=== PATIENT | male | born 1960 | race American Indian/Alaskan Native ===

== ENCOUNTER 2018-05-14 07:10 | Day surgery (SDC) | payer MEDICARE ==
[2018-05-14] MEDS ORDERED: ECOTRIN PO ONE (08:17)
[2018-05-14 08:43] LABS: Hematocrit 37.9 % (35.5-45.6); Hemoglobin 12.4 gm/dl (11.8-15.2); Mean Corpuscular HGB Conc 33 % (32-34); Mean Corpuscular Hemoglobin 27 pg (28-32); Mean Corpuscular Volume 83 fl (84-94); Platelet Count 250 K/mm3 (140-440); Red Blood Count 4.57 M/mm3 (3.65-5.03); Red Cell Distribution Width 16.1 % (13.2-15.2)
[2018-05-14 08:55] LABS: BUN/Creatinine Ratio 15; Blood Urea Nitrogen 12 mg/dL (9-20); Calcium 8.6 mg/dL (8.4-10.2); Hemolysis Index 13
[2018-05-14] MEDS ORDERED: NACL 0.9% 500 ML 500 ML IV SCH (09:00)
[2018-05-14 09:03] LABS: INR 0.97 (0.87-1.13)
[2018-05-14 09:22] LABS: Basophils % (Manual) 0 % (0.0-1.8); Total Cells Counted 100
[2018-05-14 09:23] LABS: Platelet Estimate Consistent w Auto; RBC Morphology Normal
[2018-05-14] MEDS ORDERED: VERSED ONE (09:42)
[2018-05-14] MEDS ORDERED: SUBLIMAZE ONE (09:42)
[2018-05-14] MEDS ORDERED: HEPARIN 10,000 UNITS/10 ML ONE (09:43)
[2018-05-14] MEDS ORDERED: XYLOCAINE 2% INFILTRATI ONE (09:44)
[2018-05-14] MEDS ORDERED: CALAN ONE (09:44)
[2018-05-14] MEDS ORDERED: NITROGLYCERIN SYRINGE 3 ML ONE (09:44)
[2018-05-14] MEDS ORDERED: HEPARIN/NS 5000 UNIT/500ML(CATH LAB) 1,000 ML IR ONE (10:06)
--- NOTE | 2018-05-14 11:08 | Short Stay Summary ---
Short Stay Documentation Date of service: 05/14/18 - History H&P: obtained from office - Allergies and Medications Current Medications: Allergies morphine Allergy (Verified 05/14/18 08:16) Itching Home Medications Medication Instructions Recorded Confirmed Last Taken Type Carisoprodol [Soma] 350 mg PO DAILY 05/14/18 05/14/18 05/13/18 History 350mg Doxepin HCl 50 mg PO DAILY 05/14/18 05/14/18 05/13/18 History 50mg Gabapentin [Neurontin] 400 mg PO QID 05/14/18 05/14/18 05/13/18 History 400mg buPROPion SR [Wellbutrin SR] 100 mg PO DAILY 05/14/18 05/14/18 05/13/18 History 100mg risperiDONE [Risperdal] 2 mg PO QHS 05/14/18 05/14/18 05/13/18 History 2mg tiZANidine [Zanaflex] 4 mg PO TID 05/14/18 05/14/18 05/13/18 History 4mg traMADol [Ultram 50 MG tab] 50 mg PO TID 05/14/18 05/14/18 05/13/18 History 50mg Active Medications Sodium Chloride (Nacl 0.9% 500 Ml) 500 mls @ 50 mls/hr IV DIRECT MAE Stop: 05/14/18 18:59 Last Admin: 05/14/18 08:45 Dose: 50 mls/hr - Physical exam General appearance: no acute distress Integumentary: no rash HEENT: Atraumatic Lungs: Clear to auscultation Breasts: deferred Heart: Regular rate Gastrointestinal: normal Male Genitourinary: deferred Female Genitourinary: deferred Rectal Exam: deferred Extremities: no ischemia Neurological: Normal gait - Brief post op/procedure progress note Date of procedure: 05/14/18 Pre-op diagnosis: Cardiomyopathy, abnormal stress test Post-op diagnosis: same Procedure: LHC and LV gram Anesthesia: MAC Findings: See report Surgeon: KARLA GONZALEZ Estimated blood loss: none Pathology: none Condition: stable - Hospital course Hospital course: Uneventful - Disposition Condition at discharge: Good Disposition: DC-01 TO HOME OR SELFCARE Short Stay Discharge Plan Activity: advance as tolerated Weight Bearing Status: Weight Bear as Tolerated Diet: low fat, low cholesterol, low salt Follow up with: VISHNU HERBERT MD [Primary Care Provider] - 7 Days
[2018-05-14 12:40] VITALS: BP 172/81
--- NOTE | 2018-05-14 13:22 | Cardiac Catherization Report ---
ORDERING PHYSICIAN: Yury Wylie MD INDICATION FOR PROCEDURE: Cardiomyopathy, abnormal myocardial perfusion scan. PROCEDURES PERFORMED: 1. Selective left and right coronary angiography. 2. Left ventriculography. DESCRIPTION OF PROCEDURE: After obtaining the consent, the patient was draped using sterile technique. Next, 2% lidocaine was injected into the right wrist. A 6-Tongan vascular sheath was inserted into the right radial artery. A 6-Tongan JL4 catheter was used to selectively engage left coronary artery. A 6-Tongan JR4 catheter was used to selectively engage the right coronary artery. A 6-Tongan JR4 catheter was used to perform a hand-injected LV gram. No complications occurred during the procedure. Hemostasis was achieved at the end of the procedure using manual pressure. ESTIMATED BLOOD LOSS: Minimal. SPECIMEN REMOVED: None. SEDATION ADMINISTERED: 1 mg of IV Versed and 50 mcg of IV fentanyl. PHYSICIAN/PATIENT SEDATION [id number] START TIME: 10:21 a.m. PHYSICIAN/PATIENT SEDATION [id number] STOP TIME: 10:34 a.m. TOTAL SEDATION TIME: 13 minutes. FINDINGS: HEMODYNAMICS: Aortic pressure 141/94, LV systolic pressure 150 mmHg and LVEDP 15 mmHg. There was no significant gradient noted across left ventricular outflow tract. CARDIAC STRUCTURES: The left ventricle is normal in size. There is mild global left ventricular hypokinesis. The left ventricular ejection fraction is estimated between 40% and 45%. CORONARY ANATOMY: 1. This is a right dominant circulation. 2. The left main is angiographically normal. 3. The LAD has evidence of 10% luminal irregularities in the proximal segment. 4. The left circumflex artery has evidence of 10% diffuse luminal irregularities. 5. The right coronary artery has evidence of 10% diffuse luminal irregularities. IMPRESSION: 1. Minimal luminal irregularities noted in the right dominant circulation. 2. Mild global left ventricular hypokinesis with an ejection fraction estimated between 40% and 45%. 3. Left ventricular end-diastolic pressure measured at 50 mmHg. 4. Findings are consistent with mild nonischemic cardiomyopathy. RECOMMENDATIONS: To continue current medical therapy and risk factor modifications and follow up with referring breakfast host. JOB# [id number] AKIlda/ALICIA
== END 2018-05-14 13:45 | disposition home or self-care (01) ==
LOC: CATHLABREC 07:10
PROVIDERS: ATTEND Internal Medicine
DX: I11.0 Hypertensive heart disease with heart failure (principal); I50.9 Heart failure, unspecified; I25.10 Atherosclerotic heart disease of native coronary artery without angina pectoris; M19.90 Unspecified osteoarthritis, unspecified site; F32.9 Major depressive disorder, single episode, unspecified; F17.200 Nicotine dependence, unspecified, uncomplicated; Z79.899 Other long term (current) drug therapy; Z88.5 Allergy status to narcotic agent; Z98.890 Other specified postprocedural states
CPT/HCPCS: 36415; 80048; 85007; 85025; 85610; 85730; 93005; 93010; 93458; 99156; 99157; C1894; J1644; J2250; J3010; J7040; Q9967